=== PATIENT | male | born 1980 | race Caucasian/White ===

== ENCOUNTER 2016-09-26 21:03 | Day surgery (SDC) | payer SELFPAY ==
[2016-09-26] MEDS ORDERED: LORazepam 2 MG/ML MDV IVPUSH ONE (21:37)
[2016-09-26] MEDS ORDERED: Glucagon,Human Recombinant 1 MG Vial IVPUSH ONE (21:37)
[2016-09-26] MEDS ORDERED: Ondansetron 4 MG/2 ML SDV IVPUSH ONE (21:38)
--- NOTE | 2016-09-26 21:52 | EDM.PDOC ---
ED HPI GENERAL MEDICAL PROBLEM - General Chief Complaint: ENT Problem Stated Complaint: FOOD STUCK IN THROAT Time Seen by Provider: 09/26/16 21:36 Source of Information: Reports: Patient History Limitations: Reports: No Limitations - History of Present Illness INITIAL COMMENTS - FREE TEXT/NARRATIVE: Patient is a 36-year-old male who presents to the ED with a piece of steak stuck in his esophagus. Patient ate a fillet mignon at approximately 6:00 this evening when he accidentally got a piece lodged within his esophagus. He has been unable to swallow any liquids. Has vomited all his oral secretions and liquids back up. Still has a sensation of the food stuck in his throat. No blood present. No shortness of breath or chest pain present. He has a prior history of similar symptoms in the past that passed on its own accord. He has a history of acid reflux. Denies ever having a EGD. Patient has no past medical history and currently taking no medications. - Related Data Allergies Allergy/AdvReac Type Severity Reaction Status Date / Time shellfish derived Allergy Anaphylactic Verified 09/26/16 21:13 Shock Home Meds: Home Meds . [No Known Home Meds] 09/26/16 [History] Past Medical History Musculoskeletal History: Reports: Fracture Other Musculoskeletal History: left occipital bone Social & Family History - Family History Family Medical History: Noncontributory - Tobacco Use Smoking Status *Q: Never Smoker - Caffeine Use Caffeine Use: Reports: Coffee, Energy Drinks - Recreational Drug Use Recreational Drug Use: No ED ROS ENT - Review of Systems Review Of Systems: ROS reveals no pertinent complaints other than HPI. ED EXAM, ENT - Physical Exam Exam: See Below Exam Limited By: No Limitations General Appearance: Alert, WD/WN, No Apparent Distress Ears: Hearing Grossly Normal Nose: Normal Inspection Mouth/Throat: Normal Inspection, Normal Oropharynx. No: Drooling Head: Atraumatic, Normocephalic Neck: Normal Inspection, Supple, Non-Tender, Full Range of Motion. No: Lymphadenopathy (L), Lymphadenopathy (R) Respiratory/Chest: No Respiratory Distress, Lungs Clear, Normal Breath Sounds, No Accessory Muscle Use Cardiovascular: Normal Peripheral Pulses, Regular Rate, Rhythm, No Murmur GI/Abdominal: Normal Bowel Sounds, Soft, Non-Tender, No Organomegaly, No Distention Neurological: Alert, Oriented, CN II-XII Intact, Normal Cognition Psychiatric: Normal Affect, Normal Mood Skin: Warm, Dry, Intact, Normal Color Course - Vital Signs Last Recorded V/S: Last Vital Signs Temp 97.2 F 09/26/16 21:10 Pulse 72 09/26/16 21:10 Resp 16 09/26/16 23:07 BP 137/99 H 09/26/16 21:10 Pulse Ox 100 09/26/16 23:07 - Orders/Labs/Meds Orders: Active Orders 24 hr Category Date Time Status Ondansetron [Zofran] Med 09/26/16 23:30 Once 4 mg .ROUTE .STK-MED ONE Schedule Procedure [COMM] Routine Oth 09/26/16 23:08 Ordered Meds: Medications Discontinued Medications Generic Name Dose Route Start Last Admin Trade Name Jorge PRN Reason Stop Dose Admin Dexamethasone Confirm 09/26/16 23:30 Dexamethasone Administered 09/26/16 23:31 Dose 8 mg .ROUTE .STK-MED ONE Fentanyl Confirm 09/26/16 23:30 Sublimaze Administered 09/26/16 23:31 Dose 100 mcg .ROUTE .STK-MED ONE Glucagon 1 mg 09/26/16 21:37 09/26/16 21:57 Glucagen IVPUSH 09/26/16 21:38 1 mg ONETIME ONE Administration Lidocaine HCl Confirm 09/26/16 23:30 Xylocaine-Mpf 1% Administered 09/26/16 23:31 Dose 4 mls @ as directed .ROUTE .STK-MED ONE Lactated Ringer's Confirm 09/26/16 23:32 Ringers, Lactated Administered 09/26/16 23:33 Dose 1,000 mls @ as directed .ROUTE .STK-MED ONE Lorazepam 1 mg 09/26/16 21:37 09/26/16 21:54 Ativan IVPUSH 09/26/16 21:38 1 mg ONETIME ONE Administration Midazolam HCl Confirm 09/26/16 23:30 Versed 1 Mg/Ml Administered 09/26/16 23:31 Dose 2 mg .ROUTE .STK-MED ONE Ondansetron HCl 4 mg 09/26/16 21:38 09/26/16 21:52 Zofran IVPUSH 09/26/16 21:39 4 mg ONETIME ONE Administration Ondansetron HCl Confirm 09/26/16 23:30 Zofran Administered 09/26/16 23:31 Dose 4 mg .ROUTE .STK-MED ONE Propofol Confirm 09/26/16 23:30 Diprivan 20 Ml Administered 09/26/16 23:31 Dose 200 mg .ROUTE .STK-MED ONE - Re-Assessments/Exams Free Text/Narrative Re-Assessment/Exam: Verbal orders placed for peripheral IV with Ativan 1 mg IVP, glucagon 1 mg IVP, and Zofran 4 mg IVP. 09/26/16 22:34 Reassessment, patient attempted to drink clear carbonated soda only to vomit. [id number] Nieves transportation maintenance operator General Surgeon for steakectomy. He will be in to evaluate the patient. Anesthesia along with surgical staff have been contacted. 09/26/16 23:05 Dr. Nieves arrived and has seen the patient. Patient is going back to surgery. Departure - Departure Time of Disposition: 23:15 Disposition: DC/Tfer to Acute Hospital 02 Condition: Good Clinical Impression: Food impaction of esophagus Qualifiers: Encounter type: initial encounter Qualified Code(s): T18.128A - Food in esophagus causing other injury, initial encounter - Discharge Information
--- NOTE | 2016-09-26 23:06 | PCM.PREANE ---
Preanesthetic Assessment - Procedure Proposed Procedure: EGD for food impaction (steak) - Anesthesia/Transfusion/Family Hx Anesthesia History: Prior Anesthesia Without Reaction Family History of Anesthesia Reaction: Yes Transfusion History: No Prior Transfusion(s) - Review of Systems General: No Symptoms Pulmonary: No Symptoms Cardiovascular: No Symptoms Gastrointestinal: No Symptoms, Other (GERD) Neurological: No Symptoms Other: Reports: None - Physical Assessment NPO Status Date: 09/26/16 NPO Status Time: 18:00 O2 Sat by Pulse Oximetry: 100 Respiratory Rate: 16 Vital Signs: Last Vital Signs Temp 36.2 C 09/26/16 21:10 Pulse 72 09/26/16 21:10 Resp 16 09/26/16 21:10 BP 137/99 H 09/26/16 21:10 Pulse Ox 100 09/26/16 21:10 Height: 1.75 m Weight: 81.647 kg ASA Class: 1E Mental Status: Alert & Oriented x3 Dentition: Reports: Normal Dentition Thyro-Mental Finger Breadths: 3 Mouth Opening Finger Breadths: 3 ROM/Head Extension: Full Lungs: Clear to Auscultation, Normal Respiratory Effort Cardiovascular: Regular Rate, Regular Rhythm - Allergies Allergies/Adverse Reactions: Allergies Allergy/AdvReac Type Severity Reaction Status Date / Time shellfish derived Allergy Anaphylactic Verified 09/26/16 21:13 Shock - Blood Blood Available: No Product(s) Available: None - Anesthesia Plan Pre-Op Medication Ordered: None - Acknowledgements Anesthesia Type Planned: General Anesthesia Pt an Appropriate Candidate for the Planned Anesthesia: Yes Alternatives and Risks of Anesthesia Discussed w Pt/Guardian: Yes Pt/Guardian Understands and Agrees with Anesthesia Plan: Yes PreAnesthesia Questionnaire Musculoskeletal History: Reports: Fracture Other Musculoskeletal History: left occipital bone - SUBSTANCE USE Smoking Status *Q: Former Smoker (quit 3 years ago) Tobacco Use Within Last Twelve Months: No Second Hand Smoke Exposure: No Recreational Drug Use History: No - HOME MEDS Home Medications: Home Meds . [No Known Home Meds] 09/26/16 [History] - CURRENT (IN HOUSE) MEDS Current Meds: Current Medications Discontinued Medications Glucagon (Glucagen) 1 mg IVPUSH ONETIME ONE Stop: 09/26/16 21:38 Last Admin: 09/26/16 21:57 Dose: 1 mg Lorazepam (Ativan) 1 mg IVPUSH ONETIME ONE Stop: 09/26/16 21:38 Last Admin: 09/26/16 21:54 Dose: 1 mg Ondansetron HCl (Zofran) 4 mg IVPUSH ONETIME ONE Stop: 09/26/16 21:39 Last Admin: 09/26/16 21:52 Dose: 4 mg
[2016-09-26] MEDS ORDERED: Ondansetron 4 MG/2 ML SDV ONE (23:30)
[2016-09-26] MEDS ORDERED: Dexamethasone 4 MG/ML SDV ONE (23:30)
[2016-09-26] MEDS ORDERED: Midazolam 1 MG/ML 2 ML SDV ONE (23:30)
[2016-09-26] MEDS ORDERED: Lidocaine 1% 4 ML ONE (23:30)
[2016-09-26] MEDS ORDERED: Propofol 200 MG/20 ML SDV ONE (23:30)
[2016-09-26] MEDS ORDERED: fentaNYL 100 MCG/2 ML SDV ONE ×2 (23:30→23:48)
[2016-09-26] MEDS ORDERED: Lactated Ringers 1,000 ML ONE (23:32)
--- NOTE | 2016-09-26 23:47 | PCM.OPNOTE ---
- General Post-Op/Procedure Note Date of Surgery/Procedure: 09/26/16 (E) Operative Procedure(s): EGD with removal of meat bolus Pre Op Diagnosis: dysphagia due to meat bolus Post-Op Diagnosis: Same Anesthesia Technique: General ET Tube Primary Surgeon: Luciano Nieves EBL in mLs: 0 Complications: None Condition: Good
--- NOTE | 2016-09-27 00:03 | PCM.POSTAN ---
POST ANESTHESIA ASSESSMENT - MENTAL STATUS Mental Status: Alert, Oriented - VITAL SIGNS Pulse Rate: 72 SaO2: 100 Resp Rate: 17 Blood Pressure: 145/102 Temperature: 36.9 C - RESPIRATORY Respiratory Status: Respiratory Rate WNL, Airway Patent, O2 Saturation Stable, Supplemental Oxygen - CARDIOVASCULAR CV Status: Pulse Rate WNL, Blood Pressure Stable - GASTROINTESTINAL GI Status: No Symptoms - PAIN Pain Score: 0 - POST OP HYDRATION Hydration Status: Adequate & Stable
[2016-09-27] MEDS ORDERED: Meperidine PF 50 MG/ML Syringe IVPUSH PRN (00:04)
[2016-09-27] MEDS ORDERED: Ondansetron 4 MG/2 ML SDV IVPUSH PRN (00:04)
[2016-09-27] MEDS ORDERED: diphenhydrAMINE 50 MG/ML SDV IVPUSH PRN (00:04)
[2016-09-27] MEDS ORDERED: fentaNYL 100 MCG/2 ML SDV IVPUSH PRN (00:04)
[2016-09-27] MEDS ORDERED: ePHEDrine 50 MG/ML SDV IVPUSH PRN (00:04)
--- NOTE | 2016-09-27 00:16 | PCM48HPAN ---
Post Anesthesia Note - EVALUATION WITHIN 48HRS OF ANESTHETIC Vital Signs in Normal Range: Yes Patient Participated in Evaluation: Yes Respiratory Function Stable: Yes Airway Patent: Yes Cardiovascular Function Stable: Yes Hydration Status Stable: Yes Pain Control Satisfactory: Yes Nausea and Vomiting Control Satisfactory: Yes Mental Status Recovered: Yes
--- NOTE | 2016-09-27 00:51 | HP ---
DATE OF ADMISSION: 09/26/2016 HISTORY OF PRESENT ILLNESS: This is a 36-year-old who about 6 o'clock was eating steak at home, became obstructed in the distal esophagus, came into the emergency room. Medical measures were attempted to dislodge the steak, but were unsuccessful. He has difficulty with swallowing his spit and liquids. Surgery was called. He has had occasional heartburn, but no need to treat. He has not had any dysphagia on and off. FAMILY HISTORY: Negative for esophageal problems. REVIEW OF SYSTEMS: No chest pain, shortness of breath, cough, hoarseness, wheezing, fainting, weakness, numbness, or convulsions. CURRENT MEDICATIONS: None. SOCIAL HISTORY: No smoking. Occasional drinking. No drug habits. PHYSICAL EXAMINATION: GENERAL: Reveals alert cooperative male. EYES, EARS, NOSE, AND THROAT: Unremarkable. NECK: Supple. LUNGS: Clear. HEART: Tones regular rate. ABDOMEN: Soft. EXTREMITIES: Upper and lower extremities, no angulation or deformities. SKIN: Warm and dry. PSYCHOLOGIC: Normal. NEUROLOGIC: No sensorineural deficit. 3 through 12 cranial nerves intact. ASSESSMENT: Obstruction of the distal esophagus from meat bolus. PLAN: For EGD and immediate extraction. Risks and complications including perforation discussed, the patient understands and consents. MMODAL /[id number]
[2016-09-27 01:12] VITALS: BP 119/91
--- NOTE | 2016-09-27 08:18 | OR ---
DATE OF OPERATION: 09/26/2016 SURGEON: Luciano Nieves MD PREOPERATIVE DIAGNOSIS: Dysphagia secondary to meat bolus. POSTOPERATIVE DIAGNOSIS: Dysphagia secondary to meat bolus. OPERATION PERFORMED: Esophagogastroduodenoscopy with removal of meat bolus. ANESTHESIA: Done under general anesthetic. FINDINGS: Meat impacted in distal esophagus. DESCRIPTION OF PROCEDURE: The patient was take to the GI room, placed in a supine position, connected to monitoring equipment, given a general anesthetic and intubated. Bite block was inserted. Video Olympus gastroscope was placed down the esophagus, where it was obstructed in the distal portion. Using a hexagonal snare, portions of it was removed, but was unable to get the main body. This strategy was then changed to taking small bites from the center, it was allowed it to collapse and be pushed into the stomach. The scope was advanced into the stomach, showed gastric pool, which did not allow complete visualization of the cardia. Noting the esophagus was free of any obstruction and easily admitted the scope into the stomach, this completed the procedure. The rest of the esophagus was viewed, the scope withdrawn. The patient tolerated the procedure and sent to recovery room in a stable condition and will be started on a pureed diet, Prilosec, and followed up in the clinic. ESTIMATED BLOOD LOSS: MMODAL /[id number]
== END 2016-09-27 01:05 | disposition home or self-care (01) ==
LOC: JD.ED 21:03 → JD.SDS 23:04
PROVIDERS: ATTEND Surgery
DX: T18.128A Food in esophagus causing other injury, initial encounter (principal); Z91.013 Allergy to seafood; Z98.890 Other specified postprocedural states; Z87.891 Personal history of nicotine dependence
CPT/HCPCS: 43247; 96374; 96375; 99285; J1100; J1610; J2060; J2250; J2405; J3010; J7120; 00740; 99284; J2704